=== PATIENT | male | born 1940 | race Caucasian/White ===

== ENCOUNTER 2017-03-03 15:20 | Inpatient (IN) | payer MEDICARE ==
[~2017-03-03] VITALS: Ht 198.1 cm; Wt 70.8 kg
--- NOTE | 2017-03-03 15:22 | NUR ---
PT BIB PRIVATE EMT FROM [facility] FOR G TUBE PLACEMENT. PLACED ON MONITOR. VSS. AWAITING MD ORDER.
[2017-03-03] MEDS ORDERED: IV NS 0.9% 0 ML IV ONE (15:55)
[2017-03-03] MEDS ORDERED: IV SET PRIMARY PUMP SET 1 EA INFUS.SET MC ONE ×3 (15:55→17:47)
[2017-03-03] MEDS ORDERED: IV NS 0.9% 500 ML BAG IV ONE ×2 (16:00→18:00)
--- NOTE | 2017-03-03 16:06 | NUR ---
CALLED NURSING SUP. FOR TELE BED
[2017-03-03 16:19] LABS: EOSINOPHILS % (AUTO) 0.1 % (0.0-6.0); HEMOGLOBIN 11.4 g/dL (13.5-17.5); LYMPHOCYTES # (AUTO) 0.9 /CMM (0.8-4.8); MONOCYTES # (AUTO) 0.3 /CMM (0.1-1.30)
[2017-03-03 16:23] LABS: BASOPHILS # (AUTO) 0.3 /CMM (0.0-0.2); BASOPHILS % (AUTO) 1.4 % (0.0-2.0); HEMATOCRIT 34 % (39-51); MEAN CORPUSCULAR HEMOGLOBIN 27 PG (26.0-33.0); MEAN CORPUSCULAR HGB CONC 33 g/dl (31.0-36.0); MEAN CORPUSCULAR VOLUME 81 fL (80-96); MONOCYTES % (AUTO) 1.2 % (2.0-12.0); NEUTROPHILS % (AUTO) 93.3 % (43.0-81.0); PLATELET COUNT (AUTO) 152 /CMM (150-450); RDW COEFFICIENT OF VARIATION 23.4 (11.5-15.0); RED BLOOD CELL COUNT(AUTO) 4.22 MIL/uL (4.5-6.0); WHITE BLOOD COUNT (AUTO) 23.5 K/uL (4.3-11.0)
[2017-03-03 16:29] LABS: CALCIUM, SERUM 7.9 mg/dL (8.5-10.1); CREATININE 5.4 mg/dL (0.6-1.3); POTASSIUM 5.3 mmol/L (3.5-5.1)
[2017-03-03] MEDS ORDERED: ACTIVATED CHARCOAL 25 GM/120 ML TUBE PO ONE (16:30)
[2017-03-03 16:34] LABS: INR 1.4 (0.87-1.13); PROTHROMBIN TIME 14.9 SECS (9.5-12.7)
[2017-03-03 16:35] LABS: ALBUMIN 2.2 g/dL (3.4-5.0); BILIRUBIN,DIRECT 1.3 mg/dL (0.0-0.2); BILIRUBIN,TOTAL 1.7 mg/dL (0.2-1.0)
--- NOTE | 2017-03-03 17:05 | NUR ---
GAVE REPORT TO HANG TAVERA MEDSURAmanuel THAKUR MD
[2017-03-03] MEDS ORDERED: ACETAMINOPHEN 650 MG/SUPP.RECT RC PRN (17:30)
[2017-03-03] MEDS ORDERED: PIPERACILLIN /TAZOBACTAM 3.375 G in IV D5W 50 ML IV ONE (17:30)
[2017-03-03] MEDS ORDERED: MAGNESIUM HYDROXIDE 30 ML UDC PO PRN (17:30)
[2017-03-03] MEDS ORDERED: LEVOFLOXACIN 750 MG /D5W 150ML 150 ML IV ONE ×2 (17:30→17:43)
[2017-03-03] MEDS ORDERED: ONDANSETRON HCL/PF 4 MG/2 ML VIAL IVP PRN (17:30)
[2017-03-03] MEDS ORDERED: VANCOMYCIN 1 GM in IV D5W 250 ML IV SCH (17:30)
[2017-03-03] MEDS ORDERED: HYDROCODONE/APAP 5/325MG 1 EACH TABLET PO PRN (17:30)
[2017-03-03] MEDS ORDERED: ZOLPIDEM TARTRATE 5 MG TABLET PO PRN (17:30)
[2017-03-03] MEDS ORDERED: ENOXAPARIN SODIUM 40 MG/0.4 ML DISP.SYRIN SQ SCH (17:30)
--- NOTE | 2017-03-03 17:30 | NUR ---
URINE SAMPLE COLLECTED SENT TO LAB
[2017-03-03 17:42] LABS: LACTIC ACID 2.2 mmol/L (0.4-2.0)
--- NOTE | 2017-03-03 17:45 | NUR ---
PT NOTED BY DR GRIFFITHS "SEVERE SEPSIS", CODE SEPSIS CALLED
[2017-03-03] MEDS ORDERED: IV NS 0.9% 1,000 ML ONE (17:47)
[2017-03-03] MEDS ORDERED: IV NS 0.9% 500 ML IV ONE (17:47)
[2017-03-03] MEDS ORDERED: IV NS 0.9% 250 ML IV ONE (17:58)
[2017-03-03] MEDS ORDERED: IV NS 0.9% 1,000 ML BAG IV ONE (18:00)
[2017-03-03 18:12] LABS: ABG BASE EXCESS -3.1 mmol/L; ABG OXYGEN SATURATION 94.9 % (92.0-98.5); ABG PO2 77.6 mmHg (75.0-100.0); ABG TOTAL HEMOGLOBIN 10.8 G/dL (13.5-18.0); AaDO2 94.9 mmHg; COHb 0.4 % (0.5-1.5); MetHb 0.5 % (0.0-1.5); SITE, ABG Right Brachial; VENT MODE, BG NASAL CANNULA
[2017-03-03 18:18] LABS: APPEARANCE,URINE Turbid (CLEAR); BILIRUBIN,URINE SMALL (NEGATIVE); BLOOD, URINE Large Ery/uL (NEGATIVE); COLOR,URINE Yellow (YELLOW); KETONES,URINE Negative (NEGATIVE); LEUKOCYTE ESTERASE ,URINE Large (NEGATIVE); NITRITE, URINE Negative (NEGATIVE); PROTEIN,URINE 100 mg/dl (NEGATIVE); UGLUCOSE Negative (NEGATIVE); UROBILINOGEN,URINE 0.2 EU/dL (0.2)
[2017-03-03 18:19] LABS: PH,URINE 8.5 (5.0-8.0)
[2017-03-03 18:24] LABS: ADD URINE CULTURE YES; BACTERIA,URINE Many /HPF (None Seen); CALCIUM OXALATE CRYSTALS,UR Few /HPF (None Seen); SQUAMOUS EPITHELIAL CELL,UR Few /HPF (None Seen)
[2017-03-03 18:25] LABS: TRIPLE PHOSPHATE CRYSTAL,UR Rare /HPF (None Seen)
[2017-03-03] MEDS ORDERED: FEE PK DOSING 1 MIN EA MC ONE (18:52)
[2017-03-03] MEDS ORDERED: VANCOMYCIN 500 MG in IV D5W 100 ML IV SCH ×2 (19:00→21:00)
--- NOTE | 2017-03-03 19:36 | NUR ---
GAVE REPORT TO ROSELYN TAVERA FOR EMERSON
[2017-03-03] MEDS ORDERED: VANCOMYCIN 0.75 GM in IV D5W 250 ML IV SCH (21:00)
--- NOTE | 2017-03-03 21:03 | NUR ---
REPORT BONNY TO RAY RN FOR RM 115-2
--- NOTE | 2017-03-03 21:57 | NUR ---
TRANSFERRED PT VIA GURNEY TO RM 115-2 IN ACLS PROTOCOL IN STABLE CONDITION
[2017-03-03 22:00] VITALS: BP 81/56
--- NOTE | 2017-03-03 22:00 | NUR ---
CHIEF SCIENTIFIC OFFICER INITIAL NOTE RECEIVED PT FROM ED VIA JOHNATHAN. PT A/O X2 LETHARGIC WITH SOME CONFUSION. ABLE TO MAKE SOME NEEDS KNOWN. ON 2L OF O2 VIA NC AND SATING WELL. IV LAC #20 FLUSHING WELL AND PATENT. MORRIS CATHETER IN PLACE AND DRAINING BY GRAVITY WITH SOME SEDIMENT IN THE TUBING. COLOSTOMY BAG ON LEFT SIDE OF ABDOMEN, REMOVED, SITE CLEANSED AND REPLACED WITH CLEAN BAG.FULL BODY ASSESSMENT PERFORMED. ALL SAFETY MEASURES IN PLACE. BED IN LOWEST POSITION AND LOCKED IN PLACE. CALL LIGHT WITHIN EASY REACH AT ALL TIMES. WILL CONTINUE TO MONITOR.
--- NOTE | 2017-03-03 23:00 | NUR ---
PARIMUTUEL CLERK NOTE REMOVED MORRIS CATHETER WITHOUT ANY RESISTANCE. MUCUS AND BLOOD CAME OUT MORRIS CATHETER WAS REMOVED. PT C/O OF SLIGHT PAIN. INFORMED PT OF REINSERTION AT A LATER TIME. WILL TRY TO REINSERT IN A LITTLE WHILE. WILL CONTINUE TO MONITOR.
[2017-03-04] VITALS: BP_SYST 83; BP_SYST 91; BP_DIAS 55; BP_DIAS 65
[2017-03-04] MEDS ORDERED: SECONDARY IV SET 1 EA INFUS.SET MC ONE (00:57)
[2017-03-04] MEDS ORDERED: IV SET PRIMARY PUMP SET 1 EA INFUS.SET MC ONE (00:57)
[2017-03-04] MEDS ORDERED: IV NS 0.9% 250 ML IV ONE (00:57)
[2017-03-04] MEDS ORDERED: PIPERACILLIN /TAZOBACTAM 2.25 G in IV D5W 50 ML IV SCH (01:00)
[2017-03-04] MEDS: MEROPENEM 500 MG in IV NS 0.9% 50 ML IV SCH ×3 (01:04→20:16)
[2017-03-04] MEDS: HEPARIN SODIUM, PORCINE 5000 UNITS/1 ML VIAL SQ SCH ×3 (01:16→20:19)
--- NOTE | 2017-03-04 02:00 | NUR ---
SLEEP TECHNICIAN NOTE MORRIS CATHETER REINSERTED WITHOUT C/O PAIN. NO RESISTANCE AT TIME OF INSERTION. ASCEPTIC TECHNIQUE UTILIZED WITH YELLOW, CLEAR URINE PRESENT. WILL CONTINUE TO MONITOR.
[2017-03-04] MEDS: METRONIDAZOLE 500MG/ NS 100ML 500 MG in PREMIX 1 EA IV SCH ×4 (02:06→17:48)
--- NOTE | 2017-03-04 02:10 | NUR ---
PLANT TECHNICIAN/CONTROL ROOM OPERATOR NOTE FLAGYL IV Q8H ADMINISTERED AT 0208 AM AND SHOULD BE GIVEN AGAIN AT 0500 BUT IT WAS NOT ADMINISTERED DUE TO FREQUENCY OF Q8H AND TOO CLOSE IN TIME. WILL ENDORSE TO NEXT SHIFT FOR CHANGE OF TIME.
[2017-03-04 04:00] VITALS: BP_SYST 82; BP_SYST 89; BP_DIAS 56; BP_DIAS 60
--- NOTE | 2017-03-04 04:45 | NUR ---
PT ATTEMPTING TO REMOVE MORRIS CATHETER, TELE MONITOR LEADS AND GOWN. OBTAINED ORDER FOR BILATERAL SOFT WRIST RESTRAINTS FROM [facility] ON-CALL Otilia BOURGEOIS NP. ORDER PLACED AND CARRIED OUT. PRIMARY NURSE RAY MADE AWARE. WILL CONTINUE TO MONITOR.
--- NOTE | 2017-03-04 07:00 | NUR ---
TRANSFER AGENT CLOSING NOTE PT REMAINED STABLE DURING SHIFT. BILATERAL SOFT WRIST RESTRAINTS ON. BED IN LOWEST POSITION AND LOCKED IN PLACE. MORRIS CATHETER IN PLACE. CALLED PHARMACY TO CHANGE THE NEXT ADMINISTRATION TIME FOR FLAGYL IV FROM 0500 TO 1000. GAVE REPORT TO NEXT SHIFT FOR EMERSON.
[2017-03-04 07:08] LABS: HEMATOCRIT 30 % (39-51); HEMOGLOBIN 9.7 g/dL (13.5-17.5); MEAN CORPUSCULAR HEMOGLOBIN 27 PG (26.0-33.0); MEAN CORPUSCULAR HGB CONC 33 g/dl (31.0-36.0); MEAN CORPUSCULAR VOLUME 80 fL (80-96); PLATELET COUNT (AUTO) 135 /CMM (150-450); RDW COEFFICIENT OF VARIATION 24.5 (11.5-15.0); RED BLOOD CELL COUNT(AUTO) 3.67 MIL/uL (4.5-6.0); WHITE BLOOD COUNT (AUTO) 20.4 K/uL (4.3-11.0)
[2017-03-04 07:18] LABS: CALCIUM, SERUM 7.1 mg/dL (8.5-10.1); CARBON DIOXIDE 21 mmol/L (21-32); CHLORIDE 106 mmol/L (98-107); CREATININE 5.3 mg/dL (0.6-1.3); GLUCOSE 96 mg/dL (74-106); MAGNESIUM 1.5 mg/dL (1.8-2.4); PHOSPHORUS 3.7 mg/dL (2.5-4.9); POTASSIUM 4.4 mmol/L (3.5-5.1); SODIUM SERUM 140 mmol/L (136-145); UREA NITROGEN, BLOOD 77 mg/dL (7-18)
[2017-03-04 07:24] LABS: CHOLESTEROL 97 mg/dL (<200); LDL 49 mg/dL (0-99); THYROID STIMULATING HORMONE 1.882 uIU/mL (0.358-3.74); TRIGLYCERIDES 116 mg/dL (30-150)
[2017-03-04] MEDS: PANTOPRAZOLE 40 MG TABLET.DR PO SCH (07:30)
--- NOTE | 2017-03-04 07:30 | NUR ---
RN INITIAL NOTES PT IN BED, A/O X2, ABLE TO ANSWER QUESTIONS BUT MAINLY STATES "NO" TO ALL QUESTIONS. ON NC 2L, TOLERATING WELL, NO SOB. HOB ELEVATED 35 DEGREES. ON TELE MONITOR WITH SR 80'S, DENIES CHEST PAIN. PT HAS A COLOSTOMY BAG, NO OUTPUT YET NOTED. MORRIS CATH DRAINING WELL; URINE IS LIGHT BROWN COLORED, NOT CLEAR. PT HAS BILATERAL HEEL, SACRAL REDNESS, AND MULTIPLE BRUISES ON BACK, DRESSINGS CDI. PT IS NPO. IV ON LAC 20G, SALINE FLUSHED, CDI, NO SIGNS OF INFECTION/INFILTRATION. CALL LIGHT WITHIN EASY REACH, SAFETY MEASURES MAINTAINED, WILL CONTINUE TO MONITOR AND FOLLOW MD ORDERS.
[2017-03-04 07:44] LABS: HDL CHOLESTEROL < 10 mg/dL (40-60)
[2017-03-04 08:00] VITALS: BP 81/55
[2017-03-04] MEDS ORDERED: IPRA3AMP IH (08:34)
[2017-03-04] MEDS ORDERED: ATEN100T PO (08:34)
[2017-03-04] MEDS ORDERED: FERR325T28 PO (08:34)
[2017-03-04] MEDS ORDERED: OMEP40CA37 PO (08:34)
[2017-03-04] MEDS ORDERED: APIX2.5T PO (08:34)
[2017-03-04] MEDS ORDERED: ACID1TAB12 PO (08:34)
[2017-03-04] MEDS ORDERED: ZINC220C8 PO (08:34)
[2017-03-04] MEDS ORDERED: CHOL100044 PO (08:34)
[2017-03-04] MEDS ORDERED: ASCO500T9 PO (08:34)
[2017-03-04] MEDS ORDERED: PANTOPRAZOLE 40 MG TABLET.DR PO ONE (08:59)
[2017-03-04] MEDS: DOCUSATE SODIUM 100 MG CAPSULE PO SCH ×2 (09:00→16:42)
[2017-03-04 09:57] LABS: ANISOCYTOSIS 3+; BAND % (MANUAL) 7 % (0.0-5.0); HYPOCHROMASIA 2+; LYMPHOCYTES % (MANUAL) 4 % (16-48); MONOCYTES % (MANUAL) 2 % (0-11.0); NEUTROPHILS % (MANUAL) 87 (42-76); PLATELET ESTIMATE DECREASED
[2017-03-04] MEDS ORDERED: HYDROGEL DRESSING 90 GM TUBE TP PRN (10:30)
--- NOTE | 2017-03-04 10:33 | NUR ---
WOUND CARE CONSULT: PT PRESENTS WITH MULTIPLE DEEP TISSUE INJURIES, PRESENT ON ADMISSION. SACRAL DEEP TISSUE INJURY IS IN EVOLUTION. RECOMMENDATIONS MADE FOR SKIN PROTECTION AND WOUND CARE. DISCUSSED WITH NURSING STAFF. PT ON ISOFLEX LOW AIRLOSS BED. PT TO BE TURNED AND REPOSITIONED EVERY 2 HRS PT CONDITION PERMITS, HEELS FLOATED. PT NOTED TO HAVE COLOSTOMY. NO OUTPUT NOTED AT THIS TIME. ALL SKIN PROTECTION MEASURES IN PLACE. WILL SEE PRN. CASTAÑEDA IN AGREEMENT WITH PLAN OF CARE. Addendum: 03/04/17 at 1037 by HERLINDA CABRERA WNDNU Amended: Links added.
[2017-03-04] MEDS: HYDROGEL DRESSING 90 GM TUBE TP SCH (10:57)
[2017-03-04 12:00] VITALS: BP 83/55
[2017-03-04] MEDS ORDERED: IV D5/ 0.9% NACL 1,000 ML IV ONE (13:19)
[2017-03-04] MEDS: IV D5/ 0.9% NACL 1,000 ML IV PRN (13:24)
[2017-03-04 16:00] VITALS: BP 84/58
--- NOTE | 2017-03-04 19:04 | NUR ---
RN CLOSING NOTES PT IN STABLE CONDITION, TOLERATING MECH VENT WELL, NO PAIN, IV CDI, NO SIGNS OF INFECTION/INFILTRATION, ALL MD ORDERS CARRIED OUT, VSS, AFEBRILE, COLOSTOMY CDI, MORRIS CATH CDI, CALL LIGHT WITHIN EASY REACH, SAFETY MEASURES MAINTAINED, REPORT GIVEN TO NIGHT NURSE FOR EMERSON. Addendum: 03/04/17 at 1906 by MALLY STRINGER RN NOTES AMENDED: PT DOES NOT HAVE A MECH VENT; WRONG PT.
[2017-03-04 20:00] VITALS: BP 84/56
--- NOTE | 2017-03-04 20:00 | NUR ---
RN INITIAL NOTE; PT ON THE BED RESTING WITHOUT ANY DISTRESS , A/O X 1-2 , CONFUSE. BREATHING EVEN AND UNLABORED ON 2 LPM VIA NC ,SHOWING SR 70s ON TELE MONITOR , PERIPHERAL IV ON R HAND 22G INSERTED WITH CONTINUE D5NS @ 75 ML/HR. DENIED ANY PAIN AT THIS TIME .COLOSTOMY INTACT AND NO DRAINAGE , F/C INTACT AND DRAINING YELLOWISH URINE , B/L SWR INTACT , RELEASED AND SKIN CHECKED UNDERNEATH , BED IN THE LOWEST/LOCKED POSITION , SAFETY MEASURES APPLIED . WILL CONTINUE OT MONITOR .
[2017-03-04] MEDS: MUPIROCIN OINT 2% 22 GM TUBE SCH (20:16)
[2017-03-05] VITALS: BP 86/61
[2017-03-05] MEDS: METRONIDAZOLE 500MG/ NS 100ML 500 MG in PREMIX 1 EA IV SCH ×3 (01:49→17:24)
[2017-03-05] MEDS: IV D5/ 0.9% NACL 1,000 ML IV PRN ×2 (03:58→21:49)
[2017-03-05 04:00] VITALS: BP 120/51
[2017-03-05 06:52] LABS: EOSINOPHILS % (AUTO) 0.1 % (0.0-6.0); HEMATOCRIT 33 % (39-51); HEMOGLOBIN 10.3 g/dL (13.5-17.5); LYMPHOCYTES # (AUTO) 0.8 /CMM (0.8-4.8); LYMPHOCYTES % (AUTO) 4.5 % (20.0-44.0); MEAN CORPUSCULAR HEMOGLOBIN 26 PG (26.0-33.0); MEAN CORPUSCULAR HGB CONC 31 g/dl (31.0-36.0); MEAN CORPUSCULAR VOLUME 82 fL (80-96); MONOCYTES # (AUTO) 0.3 /CMM (0.1-1.30); MONOCYTES % (AUTO) 1.8 % (2.0-12.0); NEUTROPHILS # (AUTO) 17.4 /CMM (1.8-8.9); NEUTROPHILS % (AUTO) 93.6 % (43.0-81.0); PLATELET COUNT (AUTO) 105 /CMM (150-450); RDW COEFFICIENT OF VARIATION 23.9 (11.5-15.0); RED BLOOD CELL COUNT(AUTO) 3.98 MIL/uL (4.5-6.0); WHITE BLOOD COUNT (AUTO) 18.5 K/uL (4.3-11.0)
--- NOTE | 2017-03-05 07:00 | NUR ---
RN NOTES RECEIVED PT ON BED, A/Ox1 , RESPIRATION EVEN AND UNLABORED, ON 2L N/C , NO SOB NOTED, ON TELE SR 70s . R HAND IV SITE G22 SITE CDI, WITH D5NS @ 75 ML/HR. COLOSTOMY INTACT AND NO DRAINAGE , F/C INTACT AND DRAINING YELLOWISH URINE , B/L SOFT RESTRAIN INTACT FOR PT SAFETY , BED IN LOCKED AND LOWEST POSITION , SR UP x3, CONTINUE TO MONITOR PT CLOSELY AND NOTIFY MD FOR ANY SIGNIFICANT CHANGES
--- NOTE | 2017-03-05 07:03 | NUR ---
RN EOS NOTE; PT REMAINED STABLE DURING THE SHIFT, NO ANY DISTRESS NOTED. IV SITE INTACT AND PATENT , KEPT CLEAN AND DRY .ALL NEEDS ATTENDED PROMPTLY. ENDORSED TO NEXT SHIFT RN FOR CONTINUITY OF CARE.
[2017-03-05 07:49] LABS: CALCIUM, SERUM 7.4 mg/dL (8.5-10.1); CREATININE 5.4 mg/dL (0.6-1.3); MAGNESIUM 1.7 mg/dL (1.8-2.4); PHOSPHORUS 4.2 mg/dL (2.5-4.9); POTASSIUM 4.8 mmol/L (3.5-5.1)
[2017-03-05 08:00] VITALS: BP 95/62
[2017-03-05] MEDS: DOCUSATE SODIUM 100 MG CAPSULE PO SCH ×2 (08:02→17:24)
[2017-03-05] MEDS: HEPARIN SODIUM, PORCINE 5000 UNITS/1 ML VIAL SQ SCH ×2 (08:02→21:12)
[2017-03-05] MEDS: MEROPENEM 500 MG in IV NS 0.9% 50 ML IV SCH ×2 (08:03→20:37)
[2017-03-05] MEDS: PANTOPRAZOLE 40 MG TABLET.DR PO SCH (08:03)
[2017-03-05] MEDS: HYDROGEL DRESSING 90 GM TUBE TP SCH (08:05)
[2017-03-05] MEDS: MUPIROCIN OINT 2% 22 GM TUBE SCH ×2 (08:05→21:07)
[2017-03-05 08:27] LABS: ANISOCYTOSIS 1+; BAND % (MANUAL) 5 % (0.0-5.0); EOSINOPHILS % (MANUAL) 1 % (0-4); LYMPHOCYTES % (MANUAL) 10 % (16-48); MONOCYTES % (MANUAL) 5 % (0-11.0); NEUTROPHILS % (MANUAL) 79 (42-76); PLATELET ESTIMATE DECREASED
[2017-03-05 08:28] LABS: HYPOCHROMASIA 1+
[2017-03-05 12:00] VITALS: BP 96/48
--- NOTE | 2017-03-05 12:00 | NUR ---
RN NOTES PT STABLE, D5NS AT 75CC/HR RUNNING VIA R HAND IV SITE, PT IS STILL NPO, VSS STABLE , CONTINUE TO MONITOR ,
[2017-03-05 16:00] VITALS: BP 131/73
[2017-03-05] MEDS ORDERED: LACTOBACILLUS RHAMNOSUS GG 1 EACH CAP.SPRINK PO SCH (17:00)
--- NOTE | 2017-03-05 18:16 | NUR ---
RN NOTES PT REMAINS THE SAME, IVF D5NS AT 75CC/HR RUNNING VIA R HAND IV SITE, STILL OFF RESTRAINS , CALM AND COOPERATIVE , NO SIGNIFICANT CHANGES NOTED ON THIS SHIFT
--- NOTE | 2017-03-05 19:30 | NUR ---
ASSOCIATE CHIEF NURSE INITIAL NOTES RECEIVED PATIENT AWAKE, A/OX2, ABLE TO MAKE NEEDS KNOWN, FOLLOWS COMMANDS. DENIES PAIN OR DISCOMFORT. RESPIRATIONS EVEN AND UNLABORED. WITH 2LPMO2 VIA NC. SKIN WARM AND DRY TO TOUCH. ON TELE MONITOR SINUS RHYTHM. IVF RUNNING. ISOLATION PRECAUTIONS OBSERVED. WITH F/C PATENT AND INTACT, DRAINING. WITH COLOSTOMY BAG IN PLACE. SIDE RAILS UP AND LOCKED. BED KEPT AT LOWEST POSITION. CALL LIGHT KEPT WITHIN EASY REACH. WILL CONTINUE TO MONITOR.
[2017-03-05 20:00] VITALS: BP 101/63
[2017-03-05] MEDS ORDERED: VANCOMYCIN 0.75 GM in IV D5W 250 ML IV SCH (23:00)
[2017-03-06] VITALS: BP 122/61
[2017-03-06] MEDS: METRONIDAZOLE 500MG/ NS 100ML 500 MG in PREMIX 1 EA IV SCH ×3 (02:13→17:12)
[2017-03-06] MEDS ORDERED: VANCOMYCIN 0.75 GM in IV D5W 250 ML IV SCH (03:00)
[2017-03-06 04:00] VITALS: BP 105/72
--- NOTE | 2017-03-06 06:14 | NUR ---
NEUROPSYCHOLOGIST CLOSING NOTES NO SIGNIFICANT CHANGES OVERNIGHT. NO RESPIRATORY DISTRESS NOTED. KEPT CLEAN AND DRY. TURNED AND REPOSITIONED Q2 AND PRN, WOUND TREATMENT DONE ORDERED. IVF RUNNING. SIDE RAILS UP AND LOCKED. BED KEPT AT LOWEST POSITION. HOB ELEVATED. CALL LIGHT KEPT WITHIN EASY REACH. WILL CONTINUE TO MONITOR. Addendum: 03/06/17 at 0626 by MYRON MCADAMS RN WILL ENDORSE CONTINUITY OF CARE TO AM NURSE.
--- NOTE | 2017-03-06 07:00 | NUR ---
RN INITIAL NOTE REPORT RECEIVED BY PM NURSE PT A/O X2 . PT NC 2L. TELE SR. F/C INTACT. PT NPO. IV R HAND #22G D5NS @ 75ML/HR. PT CLEAN WARM AND DRY. NO C/O PAIN. ALL SAFETY MEASURES IN PLACE. WILL CONTINUE TO MONITOR CLOSELY.
[2017-03-06] MEDS: PANTOPRAZOLE 40 MG TABLET.DR PO SCH (07:30)
[2017-03-06 08:00] VITALS: BP 89/61
[2017-03-06 08:39] LABS: BASOPHILS % (AUTO) 0.1 % (0.0-2.0); EOSINOPHILS # (AUTO) 0.1 /CMM (0.0-0.7); EOSINOPHILS % (AUTO) 0.4 % (0.0-6.0); HEMATOCRIT 34 % (39-51); HEMOGLOBIN 10.7 g/dL (13.5-17.5); LYMPHOCYTES # (AUTO) 1.3 /CMM (0.8-4.8); MEAN CORPUSCULAR HEMOGLOBIN 26 PG (26.0-33.0); MEAN CORPUSCULAR HGB CONC 32 g/dl (31.0-36.0); MEAN CORPUSCULAR VOLUME 81 fL (80-96); MONOCYTES # (AUTO) 0.5 /CMM (0.1-1.30); MONOCYTES % (AUTO) 2.6 % (2.0-12.0); NEUTROPHILS # (AUTO) 16.6 /CMM (1.8-8.9); NEUTROPHILS % (AUTO) 89.9 % (43.0-81.0); PLATELET COUNT (AUTO) 107 /CMM (150-450); RDW COEFFICIENT OF VARIATION 24.9 (11.5-15.0); RED BLOOD CELL COUNT(AUTO) 4.17 MIL/uL (4.5-6.0); WHITE BLOOD COUNT (AUTO) 18.5 K/uL (4.3-11.0)
[2017-03-06] MEDS: MEROPENEM 500 MG in IV NS 0.9% 50 ML IV SCH ×2 (08:57→20:12)
[2017-03-06] MEDS: Z GUARD REMEDY 2 OZ OINT TP PRN (09:00)
[2017-03-06] MEDS: MUPIROCIN OINT 2% 22 GM TUBE SCH ×2 (09:00→20:13)
[2017-03-06] MEDS: HYDROGEL DRESSING 90 GM TUBE TP SCH (09:00)
[2017-03-06] MEDS: DOCUSATE SODIUM 100 MG CAPSULE PO SCH ×2 (09:00→17:00)
[2017-03-06] MEDS: HEPARIN SODIUM, PORCINE 5000 UNITS/1 ML VIAL SQ SCH ×2 (09:06→20:13)
[2017-03-06 09:07] LABS: ALBUMIN 1.7 g/dL (3.4-5.0); BILIRUBIN,TOTAL 2.5 mg/dL (0.2-1.0); CALCIUM, SERUM 7.5 mg/dL (8.5-10.1); CREATININE 5.3 mg/dL (0.6-1.3); MAGNESIUM 1.5 mg/dL (1.8-2.4); PHOSPHORUS 3.7 mg/dL (2.5-4.9); TOTAL PROTEIN, SERUM 5.1 g/dL (6.4-8.2)
[2017-03-06 11:36] LABS: ANISOCYTOSIS 2+; BAND % (MANUAL) 2 % (0.0-5.0); LYMPHOCYTES % (MANUAL) 11 % (16-48); MONOCYTES % (MANUAL) 7 % (0-11.0); NEUTROPHILS % (MANUAL) 80 (42-76); PLATELET ESTIMATE DECREASED
[2017-03-06 12:00] VITALS: BP 93/65
--- NOTE | 2017-03-06 12:00 | NUR ---
RN NOTE PT REFUSING GOWN CHANGE AND WOUND TX OF BILATERAL HEELS.
--- NOTE | 2017-03-06 13:39 | NUR ---
RN NOTE SKIN TEAR NOTED ON R HAND BETWEEN INDEX FINGER AND THUMB PT TRYING TO TAKE GOWN OFF. REORIENTED PT AND MEPILEX APPLIED.
--- NOTE | 2017-03-06 15:30 | NUR ---
RN NOTE PT PULLED OUT IV. CHARGE NURSE NOTIFIED FOR INSERTION.
[2017-03-06 16:00] VITALS: BP 86/67
[2017-03-06] MEDS: IV D5/ 0.9% NACL 1,000 ML IV PRN (17:12)
--- NOTE | 2017-03-06 19:16 | NUR ---
RN CLOSING NOTE PT A/O X2 . PT NC 2L. TELE SR. F/C INTACT. PT NPO. IV L THUMB #22G D5NS @ 75ML/HR PATENT AND INTACT. BILATERAL RESTRAINTS IN CHECKED AND INTACT. PT CLEAN WARM AND DRY. NO C/O PAIN. ALL SAFETY MEASURES IN PLACE. ALL MEDICATIONS GIVEN ALL ORDERS CARRIED OUT. REPORT GIVEN TO PM NURSE FOR EMERSON.
--- NOTE | 2017-03-06 19:30 | NUR ---
COMMUNITY HEALTH OUTREACH WORKER INITIAL NOTE RECEIVED REPORT FROM COLLIN TAVERA. PT IN BED. A/A/O X2. LUNG SOUNDS DIMINISHED. BOWEL SOUNDS PRESENT, COLOSTOMY BAG INTACT. PT REMAINS NPO FOR POSSIBLE PEG PLACEMENT. NEW MORRIS INTACT AND DRAINING URINE. PT ON TELE MONITOR, SR. PT HAS RESTRAINTS INTACT. IV LEFT THUMB INTACT. REPOSITIONED FOR COMFORT. BED IN LOW LOCKED POSITION. CALL LIGHT WITHIN REACH. WILL CONTINUE TO MONITOR.
[2017-03-06 20:00] VITALS: BP 96/72
[2017-03-07] VITALS (11 sets, daily range): BP systolic 81–118; BP diastolic 49–68
[2017-03-07] MEDS: METRONIDAZOLE 500MG/ NS 100ML 500 MG in PREMIX 1 EA IV SCH (02:06)
--- NOTE | 2017-03-07 07:26 | NUR ---
BUTTER MAKER OPENING RECEIVED PATIENT A/OX2 CONFUSION PRESENT. PATIENT HAS SOFT RESTRAINT ON LEFT ARM DUE TO PULLING AT NASAL CANNULA AND IV LINES. PATIENT IS AWAKE NO S/S DIFFICULTY BREATHING, SOB, OR PAIN. IV INTACT AT THIS TIME, SALINE FLUSHED. PATIENT HAS NO APPARENT COMPLICATIONS AND CALM AT THIS TIME. MORRIS CATH IN PLACE DRAINING AND INTACT. PATIENT IS NPO AT THIS TIME. PATIENT REPOSITIONED AND RESTRAINT REMOVED FOR ROM AND REAPPLIED. PATIENT WITH CALL LIGHT IN REACH, BED LOWERED AND LOCKED, RAILS UPX3 FOR SAFETY WITH BED ALARM ON. PATIENT O2 IS VARIABLE 88-94% ROOM AIR. 2LPM NASAL CANNULA APPLIED TO HELP STABILIZE O2 SAT. PATIENT WILL BE ROUNDED Q2H OR LESS PER NEEDS.
[2017-03-07] MEDS: PANTOPRAZOLE 40 MG TABLET.DR PO SCH (07:30)
[2017-03-07 08:00] LABS: CALCIUM, SERUM 7.4 mg/dL (8.5-10.1); CREATININE 4.9 mg/dL (0.6-1.3); MAGNESIUM 1.6 mg/dL (1.8-2.4); PHOSPHORUS 3.7 mg/dL (2.5-4.9); POTASSIUM 3.9 mmol/L (3.5-5.1)
[2017-03-07 08:10] LABS: BASOPHILS % (AUTO) 0.1 % (0.0-2.0); EOSINOPHILS % (AUTO) 0.1 % (0.0-6.0); HEMATOCRIT 33 % (39-51); HEMOGLOBIN 10.6 g/dL (13.5-17.5); LYMPHOCYTES # (AUTO) 1.7 /CMM (0.8-4.8); LYMPHOCYTES % (AUTO) 10.8 % (20.0-44.0); MEAN CORPUSCULAR HEMOGLOBIN 26 PG (26.0-33.0); MEAN CORPUSCULAR HGB CONC 32 g/dl (31.0-36.0); MEAN CORPUSCULAR VOLUME 81 fL (80-96); MONOCYTES # (AUTO) 0.3 /CMM (0.1-1.30); MONOCYTES % (AUTO) 2.1 % (2.0-12.0); NEUTROPHILS # (AUTO) 13.9 /CMM (1.8-8.9); NEUTROPHILS % (AUTO) 86.9 % (43.0-81.0); PLATELET COUNT (AUTO) 102 /CMM (150-450); RDW COEFFICIENT OF VARIATION 23.8 (11.5-15.0); RED BLOOD CELL COUNT(AUTO) 4.05 MIL/uL (4.5-6.0)
--- NOTE | 2017-03-07 08:30 | NUR ---
CUSTOMS BROKERAGE AGENT NOTES PATIENT MORE AWAKE. HE IS FORGETFUL TO THE DATE BUT KNOWS HE IS IN THE HOSPITAL, , NAME AND WHY HE IS HERE.
[2017-03-07 08:35] LABS: BAND % (MANUAL) 3 % (0.0-5.0); LYMPHOCYTES % (MANUAL) 13 % (16-48); NEUTROPHILS % (MANUAL) 84 (42-76)
[2017-03-07 08:36] LABS: PLATELET ESTIMATE DECREASED
[2017-03-07 08:37] LABS: ANISOCYTOSIS 1+
[2017-03-07] MEDS: DOCUSATE SODIUM 100 MG CAPSULE PO SCH ×2 (08:41→16:38)
[2017-03-07] MEDS: MEROPENEM 500 MG in IV NS 0.9% 50 ML IV SCH (08:42)
[2017-03-07] MEDS: MUPIROCIN OINT 2% 22 GM TUBE SCH ×2 (08:44→20:52)
[2017-03-07] MEDS: Z GUARD REMEDY 2 OZ OINT TP PRN (08:44)
[2017-03-07] MEDS: HYDROGEL DRESSING 90 GM TUBE TP SCH (08:45)
[2017-03-07] MEDS: HEPARIN SODIUM, PORCINE 5000 UNITS/1 ML VIAL SQ SCH ×2 (08:50→20:52)
--- NOTE | 2017-03-07 08:57 | NUR ---
WOUND CARE CONSULT: PT PRESENTS WITH RT HAND SKIN TEAR. PT HAS MULTIPLE COMORBIDITIES WITH CACHEXIA AND VERY FRAGILE SKIN. RECOMMENDATIONS DISCUSSED WITH NURSING STAFF. PT ON TAHIRA ISOFLEX LOW AIRLOSS BED. WILL SEE PRN. CASTAÑEDA IN AGREEMENT WITH PLAN OF CARE. Addendum: 03/07/17 at 0859 by HERLINDA CABRERA WNDNU Amended: Links added.
[2017-03-07] MEDS ORDERED: SECONDARY IV SET 1 EA INFUS.SET MC ONE ×2 (10:34→16:46)
[2017-03-07] MEDS: LEVOFLOXACIN 250 MG /D5W 50 ML 250 MG in PREMIX 1 EA IV SCH (10:43)
--- NOTE | 2017-03-07 12:00 | NUR ---
MS RN NOTES NOTIFIED MD MAG 1.6 PER MD NO REPLACEMENT ORDERED. MD AWARE OF BP LOWERED AT NOON. HOB LOWERED AND LEGS EELEVATED. PATIENT HAS NO COMPLAINTS. WILL RECHECK BP
--- NOTE | 2017-03-07 15:41 | NUR ---
HOME PERFORMANCE CONSULTANT NOTES DR ESPINAL AT BEDSIDE. PATIENT STATES HE DOES NOT WANT A PEG. MD WILL SPEAK WITH DR MURDOCK
--- NOTE | 2017-03-07 16:46 | NUR ---
WIRE WELDER NOTES NOTIFIED MD COLLETTE CHENG PATIENT BP LOWERED. LAYING DOWN NOT HELPING. PER 500ML BOLUS NS
[2017-03-07] MEDS ORDERED: IV NS 0.9% 500 ML IV ONE ×2 (16:48→17:00)
[2017-03-07] MEDS ORDERED: IV NS 0.9% 500 ML BAG IV ONE (17:00)
--- NOTE | 2017-03-07 17:36 | NUR ---
WORKFORCE PLANNING ANALYST NOTES PATIENT IS REFUSING BED BATH AND REPOSITIONING. PATIENT STATES "NO MORE PLEASE". EDUCATED ON SKIN CARE AND PATIENT STATES UNDERSTANDING BUT DOES NOT WANT TO BE MOVED.
--- NOTE | 2017-03-07 17:53 | NUR ---
PUG MILL OPERATOR HELPER NOTES BOLUS FINISHED NO COMPLICATIONS
--- NOTE | 2017-03-07 18:42 | NUR ---
INTERNAL REVIEW AND AUDIT COMPLIANCE CLOSING PT DENIES PAIN, SOB, DIFFICULTY BREATHING. ROOM AIR SATURATION STABLE AT THIS TIME. BP WNL PER PATIENT HE IS USUALLY LOW 90'S TO BEGIN WITH SYSTOLIC. PATIENT PENDING SWALLOW EVAL. MD AWARE PATIENT REFUSING G TUBE AND PATIENT WISHES TO STAY FULL CODE. CALL NEEDS MET. PATIENT REFUSED TURNING AND OFFLOADING AT TIMES THROUGHOUT DAY. EDUCATED PATIENT THROUGHOUT THE DAY ON SKIN PROTECTION. PATIENT STATES UNDERSTANDING. WILL ENDORSE EMERSON TO RN
--- NOTE | 2017-03-07 18:57 | NUR ---
PAPER PATTERN INSPECTOR NOTES NOTIFIED MD COLLETTE MALAVE RECON NEEDING TO BE COMPLETED. AND MD AWARE PATIENT BP HOVERING IN THE 80'S /60'S PER MD THIS IS OKAY NO ORDERS TO BE CARRIED OUT
--- NOTE | 2017-03-07 19:00 | NUR ---
MERGERS AND ACQUISITIONS CONSULTANT NOTES PATIENT REFUSING TO HAVE HEELS OFFLOADED. EDUCATED
--- NOTE | 2017-03-07 19:20 | NUR ---
RN INITIAL NOTE RECEIVED PT IN NO ACUTE DISTRESS IN BED. PT IS A/O X 2 WITH PERIODS OF CONFUSION. PT IS ON O2 VIA NC @ 2LPM AND TOLERATING WELL WITH O2 SAT @ 98%. PT DENIES ANY SOB, DIFFICULTY BREATHING OR PAIN AT THIS TIME. PT REFUSED HEEL FLOATING AND WAS EDUCATED ON IMPORTANCE OF FLOATING HEELS TO DETER PRESSURE SORES. PT STILL REFUSED. PT HAS LTHUMB 22G THAT IS CLEAN DRY INTACT AND PATENT WITH KCL 1/2 NS @ 85ML/HR. BED IN LOW LOCK POSITION WITH RIALS UP X 2. CALL LIGHT WITHIN REACH AND ALL SAFETY MEASURES ENSURED AND CARRIED OUT. WILL CONTINUE TO MONITOR FOR ANY CHANGES IN CONDITION.
--- NOTE | 2017-03-07 20:54 | NUR ---
RN NOTE HELD 2100 HEPARIN DUE TO PT HAS VISIBLE RECTAL BLEEDING. WILL CONTACT PRE KINDERGARTEN TEACHER MD AND MAKE HIM AWARE.
--- NOTE | 2017-03-07 21:07 | NUR ---
RN NOTE RECEIVED VERBAL ORDERS FROM LEANNE BOURGEOIS NP FOR H & H DUE TO RECTAL BLEEDING. READ BACK ORDERS PERFORMED. AWAITING WEIGHT LOSS CENTRE MANAGER TO DRAW LABS.
[2017-03-07 21:45] LABS: HEMOGLOBIN 11.6 g/dL (13.5-17.5)
[2017-03-08] VITALS: BP 91/64
[2017-03-08 04:00] VITALS: BP_SYST 91; BP_DIAS 64; BP_DIAS 73
[2017-03-08] MEDS ORDERED: IV SET PRIMARY PUMP SET 1 EA INFUS.SET MC ONE (05:19)
--- NOTE | 2017-03-08 06:32 | NUR ---
RN CLOSING NOTE PT REMAINS IN NO ACUTE DISTRESS IN BED. PT DID NOT HAVE ANY SIGNIFICANT CHANGE IN CONDITION DURING SHIFT. ALL NEEDS MET ALL ORDESR CARRIED OUT WILL ENDORSE TO AM RN FOR CONTINUITY OF CARE.
--- NOTE | 2017-03-08 07:00 | NUR ---
RN INITIAL NOTE RECEIVED PT FROM PM NURSE. PT A/O 1-2 WITH PERIODS OF CONFUSION. NC 2L NO S/S OF ACUTE SOB. F/U INTACT, COLOSTOMY BAG INTACT, NPO. TELE SR .IV LAC #22 G PATENT FLUSHED AND INTACT KCL 1/2 NS @ 85ML/HR. WILL CONTINUE TO MONITOR CLOSELY. PT CLEAN WARM AND DRY.
[2017-03-08 07:18] LABS: BASOPHILS % (AUTO) 0.1 % (0.0-2.0); EOSINOPHILS # (AUTO) 0.1 /CMM (0.0-0.7); EOSINOPHILS % (AUTO) 0.4 % (0.0-6.0); HEMATOCRIT 33 % (39-51); HEMOGLOBIN 10.8 g/dL (13.5-17.5); LYMPHOCYTES # (AUTO) 1.5 /CMM (0.8-4.8); LYMPHOCYTES % (AUTO) 9.2 % (20.0-44.0); MEAN CORPUSCULAR HEMOGLOBIN 27 PG (26.0-33.0); MEAN CORPUSCULAR HGB CONC 32 g/dl (31.0-36.0); MEAN CORPUSCULAR VOLUME 82 fL (80-96); MONOCYTES # (AUTO) 0.5 /CMM (0.1-1.30); MONOCYTES % (AUTO) 3.3 % (2.0-12.0); NEUTROPHILS # (AUTO) 14.4 /CMM (1.8-8.9); PLATELET COUNT (AUTO) 110 /CMM (150-450); RDW COEFFICIENT OF VARIATION 24.4 (11.5-15.0); RED BLOOD CELL COUNT(AUTO) 4.06 MIL/uL (4.5-6.0); WHITE BLOOD COUNT (AUTO) 16.6 K/uL (4.3-11.0)
[2017-03-08] MEDS: PANTOPRAZOLE 40 MG TABLET.DR PO SCH (07:30)
[2017-03-08 07:47] LABS: ALBUMIN 1.5 g/dL (3.4-5.0); BILIRUBIN,TOTAL 2.4 mg/dL (0.2-1.0); CALCIUM, SERUM 7.6 mg/dL (8.5-10.1); CREATININE 4.8 mg/dL (0.6-1.3); MAGNESIUM 1.4 mg/dL (1.8-2.4); PHOSPHORUS 4.3 mg/dL (2.5-4.9); POTASSIUM 4.2 mmol/L (3.5-5.1); TOTAL PROTEIN, SERUM 5.1 g/dL (6.4-8.2)
[2017-03-08 08:00] VITALS: BP 96/70
[2017-03-08] MEDS: MUPIROCIN OINT 2% 22 GM TUBE SCH ×2 (08:59→20:55)
[2017-03-08] MEDS: HYDROGEL DRESSING 90 GM TUBE TP SCH (09:00)
[2017-03-08] MEDS: DOCUSATE SODIUM 100 MG CAPSULE PO SCH ×2 (09:00→16:15)
[2017-03-08 09:01] LABS: ANISOCYTOSIS 3+; BAND % (MANUAL) 4 % (0.0-5.0); HYPOCHROMASIA 2+; LYMPHOCYTES % (MANUAL) 3 % (16-48); MONOCYTES % (MANUAL) 7 % (0-11.0); NEUTROPHILS % (MANUAL) 86 (42-76); PLATELET ESTIMATE DECREASED
[2017-03-08] MEDS: HEPARIN SODIUM, PORCINE 5000 UNITS/1 ML VIAL SQ SCH ×2 (09:06→21:00)
[2017-03-08 12:00] VITALS: BP 96/70
[2017-03-08 16:00] VITALS: BP 88/63
--- NOTE | 2017-03-08 16:00 | NUR ---
RN NOTE CONSENT SIGNED AND IN CHART FOR PEG PLACEMENT.
[2017-03-08] MEDS ORDERED: Magnesium 1GM/D5W 100ML PREMIX PIGGYBACK IV ONE (16:30)
[2017-03-08] MEDS ORDERED: Magnesium 1GM/D5W 100ML PREMIX 100 ML IV SCH ×2 (16:30→17:00)
[2017-03-08] MEDS ORDERED: SECONDARY IV SET 1 EA INFUS.SET MC ONE (16:37)
--- NOTE | 2017-03-08 19:15 | NUR ---
RN CLOSING NOTE PT A/O 2 WITH PERIODS OF CONFUSION. NC 2L NO S/S OF ACUTE SOB. F/U INTACT, COLOSTOMY BAG INTACT, NPO. IV LAC #22 G PATENT FLUSHED AND INTACT KCL 1/2 NS @ 85ML/HR. PT CLEAN WARM AND DRY. ALL MEDICATION GIVEN IV. ALL ORDERS CARRIED OUT. REPORT GIVEN TO PM NURSE FOR EMERSON.
--- NOTE | 2017-03-08 19:30 | NUR ---
MS RN INITIAL NOTE RECEIVED PT RESTING IN BED. A/O X2 WITH CONFUSION AT TIMES AND ABLE TO MAKE SOME NEEDS KNOWN. BILATERAL SOFT WRIST RESTRAINTS ON AT THIS TIME WITH NO DISCOLORATION NOTED AND CIRCULATION CHECKED. ON 2L OF O2 VIA NC AND SATING WELL WITH NO SOB NOTED AT THIS TIME. IV CLEAN, PATENT AND INTACT WITH FLUIDS RUNNING AND WELL TOLERATED. MORRIS CATHETER IN PLACE AND DRAINING BY GRAVITY. COLOSTOMY CLEAN AND INTACT. ALL SAFETY MEASURES IN PLACE AT ALL TIMES. CALL LIGHT WITHIN EASY REACH. WILL CONTINUE TO MONITOR.
[2017-03-08 20:00] VITALS: BP 92/65
[2017-03-09] VITALS (11 sets, daily range): BP systolic 91–107; BP diastolic 62–71
--- NOTE | 2017-03-09 06:34 | NUR ---
MS RN CLOSING NOTE PT REMAINED STABLE DURING SHIFT. SOFT WRIST RESTRAINTS STILL ON. MORRIS CATHETER INTACT. IV PATENT AND INTACT. BED IN LOWEST POSITION AND LOCKED. WILL ENDORSE TO NEXT SHIFT FOR EMERSON.
[2017-03-09] MEDS: PANTOPRAZOLE 40 MG TABLET.DR PO SCH (07:30)
--- NOTE | 2017-03-09 07:30 | NUR ---
RN NOTE RECEIVED PT RESTING IN BED. A/O X1-2 WITH PERIODS OF CONFUSION, ABLE TO COMMUNICATE NEEDS. BILATERAL SOFT WRIST RESTRAINTS ON AT THIS TIME WITH NO DISCOLORATION NOTED AND CIRCULATION CHECKED. ON 2L OF O2 VIA NC AND SATING WELL WITH NO SOB NOTED AT THIS TIME. IV PATENT AND INTACT NO REDNESS OR INFILTRATION NOTED, FLUIDS RUNNING AND WELL TOLERATED. MORRIS CATHETER IN PLACE AND DRAINING BY GRAVITY. COLOSTOMY CLEAN AND INTACT. ALL SAFETY MEASURES IN PLACE AT ALL TIMES. CALL LIGHT WITHIN EASY REACH. WILL CONTINUE TO MONITOR.
[2017-03-09 08:04] LABS: CALCIUM, SERUM 7.9 mg/dL (8.5-10.1); CREATININE 4.8 mg/dL (0.6-1.3); POTASSIUM 4.8 mmol/L (3.5-5.1)
[2017-03-09] MEDS: DOCUSATE SODIUM 100 MG CAPSULE PO SCH ×2 (08:54→17:00)
[2017-03-09] MEDS: HEPARIN SODIUM, PORCINE 5000 UNITS/1 ML VIAL SQ SCH ×2 (09:00→22:05)
[2017-03-09] MEDS: Z GUARD REMEDY 2 OZ OINT TP PRN (09:03)
[2017-03-09] MEDS: HYDROGEL DRESSING 90 GM TUBE TP SCH (09:04)
[2017-03-09] MEDS: MUPIROCIN OINT 2% 22 GM TUBE SCH ×2 (09:05→22:03)
[2017-03-09] MEDS: LEVOFLOXACIN 250 MG /D5W 50 ML 250 MG in PREMIX 1 EA IV SCH (09:10)
--- NOTE | 2017-03-09 09:15 | NUR ---
RN NOTES PT REFUSED AM MEDICATIONS BY MOUTH, PER MD HOLD HEPARIN PRIOR TO PROCEDURE, WILL CONTINUE TO MONITOR
--- NOTE | 2017-03-09 09:40 | NUR ---
RN NOTES PATIENT TAKEN TO OR FOR PROCEDURE IN STABLE CONDITION WILL CONTINUE TO MONITOR UPON RETURN
[2017-03-09] MEDS ORDERED: EPHEDRINE SULFATE IV 50MG VIAL ONE ×2 (10:36→10:56)
[2017-03-09] MEDS ORDERED: ANESTHESIA TRAY IN PYXIS 1 EA TRAY MC ONE (11:28)
[2017-03-09] MEDS ORDERED: IV SET PRIMARY PUMP SET 1 EA INFUS.SET MC ONE (11:53)
[2017-03-09] MEDS: IV 1/2NS 1000 ML 1,000 ML IV PRN (12:07)
[2017-03-09] MEDS ORDERED: PHARMACY TO CHANGE PO MEDS TO GT/NG XX PRN (16:00)
[2017-03-09] MEDS ORDERED: RENAL NOVASOURCE 1,000 ML BOTTLE GT PRN (17:00)
--- NOTE | 2017-03-09 19:16 | NUR ---
RN NOTE PT RESTING IN BED. A/O X1-2 WITH PERIODS OF CONFUSION, ABLE TO COMMUNICATE NEEDS. BILATERAL SOFT WRIST RESTRAINTS ON AT THIS TIME WITH NO DISCOLORATION NOTED AND CIRCULATION CHECKED. ON 2L OF O2 VIA NC AND SATING WELL WITH NO SOB NOTED AT THIS TIME. IV PATENT AND INTACT NO REDNESS OR INFILTRATION NOTED, FLUIDS RUNNING AND WELL TOLERATED. MORRIS CATHETER IN PLACE AND DRAINING BY GRAVITY. COLOSTOMY CLEAN AND INTACT. ALL SAFETY MEASURES IN PLACE AT ALL TIMES. CALL LIGHT WITHIN EASY REACH, ENDORSED TO NEXT SHIFT FOR CONTINUITY OF CARE
--- NOTE | 2017-03-09 19:45 | NUR ---
MS RN INITIAL NOTE RECEIVED PT IN BED. A/O X1 WITH CONFUSION AND ABLE TO MAKE SOME NEEDS KNOWN. IV SITE CLEAN AND INTACT. MORRIS CATHETER IN PLACE AND DRAINING BY GRAVITY.COLOSTOMY CLEAN AND INTACT. NEW GTUBE PLACED TODAY WITH FEEDING WELL TOLERATED AND NO RESIDUAL AT THIS TIME. NO C/O PAIN OR DISCOMFORT AT THIS TIME. CALL LIGHT WITHIN REACH . ISOLATION PRECAUTIONS OBSERVED. WILL CONTINUE TO MONITOR.
[2017-03-10] MEDS: IV 1/2NS 1000 ML 1,000 ML IV PRN (03:03)
[2017-03-10 04:00] VITALS: BP 101/68
--- NOTE | 2017-03-10 07:24 | NUR ---
MS RN CLOSING NOTE PT REMAINED STABLE DURING SHIFT. NO C/O PAIN OR DISCOMFORT AT THIS TIME. MORRIS CATHETER IN PLACE. GTUBE INTACT, FEEDING WELL TOLERATED AND NO RESIDUAL. BILATERAL WRIST RESTRAINTS IN PLACE. WILL ENDORSE TO NEXT SHIFT FOR EMERSON.
[2017-03-10] MEDS: HEPARIN SODIUM, PORCINE 5000 UNITS/1 ML VIAL SQ SCH (09:31)
[2017-03-10] MEDS: DOCUSATE SODIUM 100 MG CAPSULE PO SCH (09:32)
[2017-03-10] MEDS: HYDROGEL DRESSING 90 GM TUBE TP SCH (09:36)
[2017-03-10] MEDS: MUPIROCIN OINT 2% 22 GM TUBE SCH (09:36)
[2017-03-10] MEDS: PANTOPRAZOLE 40 MG TABLET.DR PO SCH (10:00)
[2017-03-10] MEDS ORDERED: DOCUSATE SODIUM LIQ 100 MG/10 ML UDC GT SCH (10:30)
[2017-03-10 13:00] VITALS: BP 101/68
--- NOTE | 2017-03-10 20:18 | NUR ---
pt discharged tis day with no distress noted....g tube clamped...tolerating feeds w/o difficulty, no residuals noted...
== END 2017-03-10 16:00 | DRG 871 ==
LOC: ER 15:31 → UNDOADMIN 16:48 → TELE 16:48 → TELE1 20:12 → MEDSG1 03-08 20:33
PROVIDERS: ADMIT Internal Medicine; ATTEND Internal Medicine
PROC: 0DH63UZ Insertion of Feeding Device into Stomach, Percutaneous Approach (ICD-10-PCS; principal; 2017-03-09 10:26)
DX: A41.9 Sepsis, unspecified organism (principal); J69.0 Pneumonitis due to inhalation of food and vomit; N17.0 Acute kidney failure with tubular necrosis; E43 Unspecified severe protein-calorie malnutrition; E87.0 Hyperosmolality and hypernatremia; N39.0 Urinary tract infection, site not specified; R64 Cachexia; Z68.1 Body mass index [BMI] 19.9 or less, adult; A04.7 Enterocolitis due to Clostridium difficile; C78.7 Secondary malignant neoplasm of liver and intrahepatic bile duct; B96.20 Unspecified Escherichia coli [E. coli] as the cause of diseases classified elsewhere; E83.42 Hypomagnesemia; E87.5 Hyperkalemia; Z85.038 Personal history of other malignant neoplasm of large intestine; Z93.3 Colostomy status; R62.7 Adult failure to thrive; N18.9 Chronic kidney disease, unspecified; I12.9 Hypertensive chronic kidney disease with stage 1 through stage 4 chronic kidney disease, or unspecified chronic kidney disease; N20.0 Calculus of kidney; R13.10 Dysphagia, unspecified; R74.0 Nonspecific elevation of levels of transaminase and lactic acid dehydrogenase [LDH]; Z22.322 Carrier or suspected carrier of Methicillin resistant Staphylococcus aureus; N21.0 Calculus in bladder; B96.89 Other specified bacterial agents as the cause of diseases classified elsewhere; D63.8 Anemia in other chronic diseases classified elsewhere; E88.09 Other disorders of plasma-protein metabolism, not elsewhere classified; L89.90 Pressure ulcer of unspecified site, unspecified stage; R65.20 Severe sepsis without septic shock
CPT/HCPCS: 36415; 36600; 71010-TC; 76700-TC; 80048-TC; 80053-TC; 80061-TC; 80076-TC; 80202-TC; 81000-TC; 83605-TC; 83690-TC; 83735-TC; 84100-TC; 84443-TC; 85025-TC; 85027-TC; 85730-TC; 86850-TC; 87040-TC; 87081-TC; 87086-TC; 87186-TC; 92611-TC; 94799-TC; A4216; A4606; A6248; A6402; J1644; J1956; J2185; J2543; J3370; J3475; J3480; J3490; J7030; J7040; J7042; J7050; J7060; Z7610